=== PATIENT | female | born 1995 | race American Indian/Alaskan Native ===

== ENCOUNTER 2021-01-06 19:21 | Outpatient (CLI) | payer MEDICAID ==
[2021-01-06] MEDS ORDERED: LACTATED RINGERS 1,000 ML IV PRN (19:29)
[2021-01-06] MEDS ORDERED: MEPERIDINE 25 MG/1 ML INJ IM ONE (19:52)
[2021-01-06 19:58] VITALS: BP 108/68
[2021-01-06] MEDS ORDERED: LACTATED RINGERS 500 ML IV ONE (20:29)
--- NOTE | 2021-01-06 20:50 | Ultrasound Report ---
Of the ultrasound INDICATION: Placenta FINDINGS: Single live intrauterine in cephalic position. Placenta is posterior fundal and l eft lateral. No abruption is seen. Grade 1 placenta. heart rate is 147. IMPRESSION: No obstruction is identified. heart rate 147 bpm. Signer Name: Ronald Urena MD Signed: 01/06/2021 8:45 PM Workstation Name: [id number]
[2021-01-06] MEDS ORDERED: ACETAMINOPHEN 500 MG TAB PO ONE (22:03)
[2021-01-06] MEDS ORDERED: oxyCODONE /ACETAMINOPHEN 5-325MG TAB PO ONE (23:08)
== END 2021-01-06 23:20 | disposition home or self-care (01) ==
LOC: TRG 19:21 → APU 19:23 → TRG 23:20
DX: Z34.93 Encounter for supervision of normal pregnancy, unspecified, third trimester (principal); Z3A.29 29 weeks gestation of pregnancy
CPT/HCPCS: 59025; 76815